=== PATIENT | male | born 1965 | race Caucasian/White ===

== ENCOUNTER → 2017-05-31 | Outpatient (CLI) | payer BC ==
[~2017-05-31] MED LIST: GASTROGRAFIN SOLUTION 30ML (Q9963) As Ordered ONE; ISOVUE-370 76% 100ML VIAL (Q9967) As Ordered ONE
--- NOTE | 2017-05-31 19:29 | REP ---
CT ABDOMEN AND PELVIS WITH AND WITHOUT CONTRAST: TECHNIQUE: Axial noncontrast images through the abdomen followed by contrast-enhanced images through the abdomen and pelvis using 100 mL Isovue 370 intravenous contrast material, with coronal and sagittal reformations. Visualized lung bases are clear. Precontrast images show no gallstones. No intrarenal calculi are seen, but there is a 3 mm calculus within the distal right ureter causing mild right hydroureteronephrosis. No bladder calculus is seen. Postcontrast images demonstrate focal fatty infiltration of the liver anteriorly along the fissure for the ligamentum teres. The liver and spleen are normal in size with no other intrinsic abnormality. The adrenals, pancreas and left kidney appear normal. There are mild atherosclerotic calcifications of the distal abdominal aorta without aneurysm. There is no adenopathy. There is no free air or free fluid. No bowel wall thickening is seen. No pelvic mass is seen. There are mild degenerative changes of the spine. IMPRESSION: There is a 3 mm calculus in the distal right ureter causing mild right hydroureteronephrosis. No other significant abnormalities is seen in the abdomen or pelvis. Signed by Petey Dai MD 06/01/2017 05:20 P
[2017-05-31 20:21] LABS: BASO % 0.3 % (0.0-1.0); EOS % 0.7 % (0.0-3.0); LARGE UNSTAINED CELL # 0.1 K/mm3 (0.0-0.4); LARGE UNSTAINED CELL % 1.3 % (0.0-4.0); LYMPH % 25.2 % (24.0-44.0); MEAN CORPUSCULAR HEMOGLOBIN 31.9 pg (27.0-33.0); MEAN CORPUSCULAR HGB CONC 33.9 g/dl (32.0-36.5); MONO # 0.4 K/mm3 (0.0-0.8); MONO % 5.1 % (0.0-5.0); NEUTROPHILS # 5.2 K/mm3 (1.8-7.7); NEUTROPHILS % 67.4 % (36.0-66.0); PLATELET COUNT, AUTOMATED 256 k/mm3 (150-450); RED CELL DISTRIBUTION WIDTH 12.7 % (11.5-14.5); WHITE BLOOD COUNT 7.6 K/mm3 (4.0-10.0)
[2017-05-31 20:39] LABS: ALBUMIN 4.3 GM/DL (3.2-5.2); ALKALINE PHOSPHATASE 93 U/L (45-117); ALT/SGPT 31 U/L (12-78); ANION GAP 8 MEQ/L (8-16); AST/SGOT 16 U/L (15-37); BILIRUBIN,TOTAL 0.7 MG/DL (0.2-1.0); BLOOD UREA NITROGEN 10 MG/DL (7-18); CARBON DIOXIDE LEVEL 26 MEQ/L (21-32); CHLORIDE LEVEL 107 MEQ/L (98-107); FREE T4 0.78 NG/DL (0.76-1.46); GLOMERULAR FILTRATION RATE > 60.0 (>56); GLUCOSE, FASTING 82 MG/DL (70-105); POTASSIUM SERUM 3.8 MEQ/L (3.5-5.1); SODIUM LEVEL 141 MEQ/L (136-145); TOTAL PROTEIN 7.6 GM/DL (6.4-8.2)
== END ==
LOC: M RAD 15:55
PROVIDERS: ATTEND Otolaryngology
DX: R63.4 Abnormal weight loss (principal); R10.84 Generalized abdominal pain; N13.1 Hydronephrosis with ureteral stricture, not elsewhere classified
CPT/HCPCS: 74178; 80053; 84439; 84443; 85025; G0103; Q9963; Q9967

== ENCOUNTER → 2017-11-07 | Outpatient (CLI) | payer BC ==
--- NOTE | 2017-11-07 14:37 | REP ---
Clinical: Follow up nephroureterolithiasis. Comparison: 05/31/2017. Findings: Evaluation of the urinary tract system is essentially unremarkable. There is no evidence for perinephric stranding, hydroureteronephrosis, intrarenal or obstructing ureteral calculi. The previously noted distal right ureteral calculus has resolved. Bilateral ureters and bladder are normal in appearance. Liver, spleen, pancreas, gallbladder, and bilateral adrenal glands are normal for noncontrast evaluation. The enteric system is without obstruction or acute inflammatory process. A normal terminal ileum and appendix are identified in the right lower quadrant. Pelvis demonstrates normal bladder and age appropriate prostate/seminal vesicles. No pelvic fluid or ascites. Mild atherosclerotic changes to the aorta and iliac arteries noted without aneurysm. No intraperitoneal or retroperitoneal adenopathy. No free air. No obvious mass lesion. Musculoskeletal structures are intact without focal osseous abnormality. Benign solitary cyst identified in the L3 vertebral body remains stable. Mild bilateral sacroiliitis is suggested. Impression: 1. Normal appearance to the urinary tract system. Previously noted 3 mm obstructing distal right ureteral calculus has resolved. 2. No significant abdominopelvic pathology appreciated. 3. 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 Signed by Tushar Chairez MD 11/07/2017 04:53 A
== END ==
LOC: M RAD 07:26
PROVIDERS: ATTEND Otolaryngology
DX: N20.1 Calculus of ureter (principal); M51.36 Other intervertebral disc degeneration, lumbar region; M51.37 Other intervertebral disc degeneration, lumbosacral region

== ENCOUNTER → 2020-09-17 | Outpatient (REF) | payer BC ==
[2020-09-17 18:05] LABS: BASO % 0.2 % (0.0-1.0); EOS # 0.1 10^3/uL (0.0-0.5); EOS % 0.8 % (0.0-3.0); HEMATOCRIT 43.8 % (42.0-52.0); HEMOGLOBIN 14.6 g/dl (13.5-17.5); LYMPH # 2.2 10^3/uL (1.5-5.0); LYMPH % 25.2 % (24.0-44.0); MEAN CORPUSCULAR HEMOGLOBIN 31.3 pg (27.0-33.0); MEAN CORPUSCULAR HGB CONC 33.3 g/dl (32.0-36.5); MEAN CORPUSCULAR VOLUME 93.8 fl (80.0-96.0); MONO # 0.8 10^3/uL (0.0-0.8); MONO % 9.1 % (0.0-5.0); NEUTROPHILS # 5.6 10^3/uL (1.5-8.5); NEUTROPHILS % 64.4 % (36.0-66.0); PLATELET COUNT, AUTOMATED 269 10^3/uL (150-450); RED BLOOD COUNT 4.67 10^6/uL (4.30-6.10); WHITE BLOOD COUNT 8.7 10^3/uL (4.0-10.0)
[2020-09-17 18:17] LABS: ALBUMIN 4.1 GM/DL (3.2-5.2); ALT/SGPT 42 U/L (12-78); BILIRUBIN,TOTAL 0.5 MG/DL (0.2-1.0); BLOOD UREA NITROGEN 11 MG/DL (7-18); CARBON DIOXIDE LEVEL 29 MEQ/L (21-32); CHLORIDE LEVEL 105 MEQ/L (98-107); CREATININE FOR GFR 1.16 MG/DL (0.70-1.30); GLOMERULAR FILTRATION RATE > 60.0 (>56); GLUCOSE, FASTING 78 MG/DL (70-100); POTASSIUM SERUM 4.1 MEQ/L (3.5-5.1); SODIUM LEVEL 140 MEQ/L (136-145); TOTAL PROTEIN 7.3 GM/DL (6.4-8.2); URIC ACID 7.1 MG/DL (3.5-7.2)
[2020-09-17 18:25] LABS: TOTAL 25(OH) VITAMIN D 29.4 NG/ML (30.0-100.0)
[2020-09-17 18:26] LABS: PTH INTACT 46.9 PG/ML (18.5-88.0); VITAMIN B12 LEVEL 307 PG/ML (247-911)
[2020-09-21 14:10] LABS: ALBUMIN 4.31 GM/DL (3.29-5.55); ALPHA-1-GLOBULIN % 4.3 % (2.9-4.9); ALPHA-1-GLOBULINS 0.31 GM/DL (0.17-0.41); ALPHA-2-GLOBULINS % 10.9 % (7.1-11.8); BETA-1-GLOBULINS % 6.8 % (4.7-7.2); BETA-2-GLOBULINS 0.47 GM/DL (0.19-0.55); BETA-2-GLOBULINS % 6.4 % (3.2-6.5); GAMMA GLOBULIN % 12.6 % (11.1-18.8); GAMMA GLOBULINS 0.92 GM/DL (0.65-1.58)
== END ==
LOC: M SFHCPLAZ 15:34
PROVIDERS: ATTEND Family Medicine
DX: M10.9 Gout, unspecified (principal); D75.89 Other specified diseases of blood and blood-forming organs; N20.0 Calculus of kidney; E78.2 Mixed hyperlipidemia; Z12.5 Encounter for screening for malignant neoplasm of prostate
CPT/HCPCS: 36415; 80053; 82306; 82365; 82607; 83970; 84165; 84550; 85025; 86200; G0103

== ENCOUNTER → 2022-09-04 | Outpatient (CLI) | payer BC | LOC: M RAD 14:52 | PROVIDERS: ATTEND Family Medicine | DX: N20.0 Calculus of kidney (principal) ==

== ENCOUNTER → 2022-09-04 | Outpatient (CLI) | payer BC ==
[2022-09-04 15:41] LABS: BASO % 0.2 % (0.0-1.0); EOS % 0.2 % (0.0-3.0); HEMATOCRIT 44.5 % (42.0-52.0); LYMPH # 2.1 10^3/uL (1.5-5.0); LYMPH % 16.5 % (24.0-44.0); MEAN CORPUSCULAR HEMOGLOBIN 31.3 pg (27.0-33.0); MEAN CORPUSCULAR HGB CONC 33.7 g/dl (32.0-36.5); MEAN CORPUSCULAR VOLUME 92.7 fl (80.0-96.0); MONO # 0.9 10^3/uL (0.0-0.8); MONO % 7.1 % (2.0-8.0); NEUTROPHILS # 9.4 10^3/uL (1.5-8.5); NEUTROPHILS % 75.7 % (36.0-66.0); PLATELET COUNT, AUTOMATED 268 10^3/uL (150-450); WHITE BLOOD COUNT 12.5 10^3/uL (4.0-10.0)
[2022-09-04 15:42] LABS: HEMATOCRIT 44.5 % (42.0-52.0)
[2022-09-04 16:19] LABS: APPEARANCE, URINE MANUAL HAZY (CLEAR); COLOR, URINE MANUAL YELLOW (YELLOW)
[2022-09-04 16:20] LABS: BILIRUBIN, URINE MANUAL NEGATIVE (NEGATIVE); BLOOD URINE MANUAL POSITIVE (NEGATIVE); GLUCOSE, URINE (UA) MANUAL NEGATIVE (NEGATIVE); KETONE, URINE MANUAL NEGATIVE (NEGATIVE); LEUKOCYTE ESTERASE, URINE MAN POSITIVE (NEGATIVE); NITRITE, URINE MANUAL NEGATIVE (NEGATIVE); PH,URINE MAN 6.7 UNITS (5.0 - 7.0); PROTEIN, URINE MANUAL 1+ mg/dL (NEGATIVE); SPECIFIC GRAVITY,URINE MANUAL 1.015 (1.002-1.035); UROBILINOGEN, URINE MANUAL NORMAL (NORMAL)
[2022-09-04 16:22] LABS: ALBUMIN 4.2 GM/DL (3.2-5.2); ALT/SGPT 31 U/L (12-78); BILIRUBIN,TOTAL 0.6 MG/DL (0.2-1.0); BLOOD UREA NITROGEN 13 MG/DL (7-18); CALCIUM LEVEL 9.6 MG/DL (8.5-10.1); CARBON DIOXIDE LEVEL 28 MEQ/L (21-32); CHLORIDE LEVEL 102 MEQ/L (98-107); CHOLESTEROL LEVEL 157 MG/DL (<200); CHOLESTEROL RISK RATIO 3.488 (<5); CREATININE FOR GFR 1.13 MG/DL (0.70-1.30); GLOMERULAR FILTRATION RATE > 60.0 (>56); GLUCOSE, FASTING 94 MG/DL (70-100); HDL CHOLESTEROL 45 MG/DL (>40); LDL CHOLESTEROL 60 MG/DL (<100); NON-HDL-C 112 MG/DL; NT-PRO BNP 48 PG/ML (<125); POTASSIUM SERUM 4.9 MEQ/L (3.5-5.1); SODIUM LEVEL 137 MEQ/L (136-145); TOTAL PROTEIN 7.8 GM/DL (6.4-8.2); TRIGLYCERIDES LEVEL 262 MG/DL (<150)
[2022-09-04 17:17] LABS: VITAMIN B12 LEVEL 237 PG/ML (247-911)
[2022-09-04 17:49] LABS: BACTERIA, URINE LARGE AMOUNT; HYALINE CAST, URINE NONE SEEN /lpf (0-1); RBC, URINE 20-30 /hpf (0-3); SQUAMOUS EPITHELIAL CELL URINE SMALL AMOUNT /hpf (SMALL AMT); WBC, URINE 40-50 /hpf (0-3)
== END ==
LOC: M PLALAB 13:40
PROVIDERS: ATTEND Family Medicine
DX: E53.8 Deficiency of other specified B group vitamins (principal); N20.0 Calculus of kidney; E78.2 Mixed hyperlipidemia; I10 Essential (primary) hypertension

== ENCOUNTER → 2022-09-27 | Outpatient (CLI) | payer BC | LOC: M RAD 15:11 | PROVIDERS: ATTEND Family Medicine | DX: N20.0 Calculus of kidney (principal) ==

== ENCOUNTER → 2024-05-16 | Outpatient (CLI) | payer BC ==
[2024-05-16 13:39] LABS: BASO % 0.6 % (0.0-1.0); EOS # 0.1 10^3/uL (0.0-0.5); EOS % 1.5 % (0.0-3.0); HEMATOCRIT 46.6 % (42.0-52.0); HEMOGLOBIN 16.2 g/dl (13.5-17.5); LYMPH # 1.9 10^3/uL (1.5-5.0); LYMPH % 27.2 % (24.0-44.0); MEAN CORPUSCULAR HEMOGLOBIN 31.6 pg (27.0-33.0); MEAN CORPUSCULAR HGB CONC 34.8 g/dl (32.0-36.5); MEAN CORPUSCULAR VOLUME 90.8 fl (80.0-96.0); MONO # 0.5 10^3/uL (0.0-0.8); MONO % 7.5 % (2.0-8.0); NEUTROPHILS # 4.3 10^3/uL (1.5-8.5); NEUTROPHILS % 63.1 % (36.0-66.0); PLATELET COUNT, AUTOMATED 274 10^3/uL (150-450); RED BLOOD COUNT 5.13 10^6/uL (4.30-6.10); WHITE BLOOD COUNT 6.8 10^3/uL (4.0-10.0)
[2024-05-16 13:41] LABS: HEMATOCRIT 47.3 % (42.0-52.0)
[2024-05-16 13:43] LABS: ERYTHROCYTE SEDIMENTATION RATE 10 mm/hr (0-20)
[2024-05-16 13:45] LABS: C REACTIVE PROTEIN QUANTITATIV < 0.40 MG/DL (<1.0)
[2024-05-16 13:47] LABS: ALBUMIN 4.5 G/DL (3.2-5.2); ALKALINE PHOSPHATASE 85 U/L (46-116); ALT/SGPT 106 U/L (7.0-40); AST/SGOT 44 U/L (<34); BILIRUBIN,TOTAL 0.4 MG/DL (0.3-1.2); BLOOD UREA NITROGEN 12 MG/DL (9-23); CALCIUM LEVEL 9.7 MG/DL (8.5-10.1); CARBON DIOXIDE LEVEL 24 MMOL/L (20-31); CHLORIDE LEVEL 106 MMOL/L (98-107); CHOLESTEROL LEVEL 183 MG/DL (<200); CHOLESTEROL RISK RATIO 4.85 (<5); CREATININE FOR GFR 1.11 MG/DL (0.70-1.30); FERRITIN 59.9 NG/ML (10.5-307.3); GLOMERULAR FILTRATION RATE > 60.0 (>56); GLUCOSE, FASTING 122 MG/DL (60-100); HDL CHOLESTEROL 37.7 MG/DL (>40); LDL CHOLESTEROL 108.7 MG/DL (<100); NON-HDL-C 145.3 MG/DL; POTASSIUM SERUM 4.5 MMOL/L (3.5-5.1); PSA SCREENING 0.84 NG/ML (< 4.00); PTH INTACT 31.1 PG/ML (18.5-88.0); RHEUMATOID FACTOR QUANT < 3.5 IU/ML (<14); SODIUM LEVEL 138 MMOL/L (136-145); THYROID STIMULATING HORMONE 1.186 uIU/ML (0.55-4.78); TOTAL 25(OH) VITAMIN D 22.5 NG/ML (20.0-100.0); TOTAL PROTEIN 7.6 G/DL (5.7-8.2); TRIGLYCERIDES LEVEL 183 MG/DL (<150)
[2024-05-16 13:48] LABS: FREE T4 0.86 NG/DL (0.89-1.76)
[2024-05-16 13:49] LABS: VITAMIN B12 LEVEL 534 PG/ML (211-911)
[2024-05-16 14:06] LABS: HEPATITIS B SURFACE ANTIGEN NEGATIVE (NEGATIVE)
[2024-05-16 14:27] LABS: HEPATITIS C VIRUS ABY INDEX < 0.02 INDEX (<0.8)
[2024-05-16 14:37] LABS: HEMOGLOBIN A1c 5.9 % (4.0-6.0)
[2024-05-16 14:43] LABS: URIC ACID 8.6 MG/DL (3.7-9.2)
[2024-05-18 02:13] LABS: PROTEIN, TOTAL SO 7.4 g/dL (6.1-8.1)
[2024-05-19 13:57] LABS: ANA SCREEN, IFA NEGATIVE (NEGATIVE)
[2024-05-19 16:09] LABS: Creatinine(Crt),U 2.97 g/L (0.30-3.00)
[2024-05-19 16:58] LABS: LYME TOTAL ANTIBODY CIA <= 0.90 Index (<=0.90)
== END ==
LOC: M PLALAB 08:58
PROVIDERS: ATTEND Family Medicine
DX: N20.0 Calculus of kidney (principal)
CPT/HCPCS: 36415; 80053; 80061; 82175; 82306; 82570; 82607; 82728; 82747; 83036; 83655; 83825; 83921; 83970; 84155; 84165; 84207; 84425; 84439; 84443; 84446; 84550; 85025; 85652; 86038; 86140; 86335; 86431; 86618; 86803; 87340; G0103

== ENCOUNTER → 2024-05-30 | Outpatient (CLI) | payer BC ==
[2024-05-30 14:11] LABS: ALBUMIN 4.3 G/DL (3.2-5.2); ALKALINE PHOSPHATASE 80 U/L (46-116); ALT/SGPT 138 U/L (7.0-40); AST/SGOT 67 U/L (<34); BILIRUBIN,TOTAL 0.8 MG/DL (0.3-1.2); BLOOD UREA NITROGEN 9 MG/DL (9-23); CALCIUM LEVEL 10.1 MG/DL (8.5-10.1); CARBON DIOXIDE LEVEL 27 MMOL/L (20-31); CHLORIDE LEVEL 107 MMOL/L (98-107); CHOLESTEROL LEVEL 181 MG/DL (<200); CHOLESTEROL RISK RATIO 4.93 (<5); CREATININE FOR GFR 1.16 MG/DL (0.70-1.30); GLOMERULAR FILTRATION RATE > 60.0 (>56); GLUCOSE, FASTING 114 MG/DL (60-100); HDL CHOLESTEROL 36.7 MG/DL (>40); IMMUNOGLOBULIN A 193.1 MG/DL (40-350); LDL CHOLESTEROL 125.5 MG/DL (<100); NON-HDL-C 144.3 MG/DL; POTASSIUM SERUM 4.8 MMOL/L (3.5-5.1); SODIUM LEVEL 141 MMOL/L (136-145); TOTAL PROTEIN 7.3 G/DL (5.7-8.2); TRIGLYCERIDES LEVEL 94 MG/DL (<150)
[2024-05-30 14:12] LABS: IMMUNOGLOBULIN G 1046 MG/DL (650-1600)
[2024-05-30 14:37] LABS: HIV 1&2 SCREEN NEGATIVE (NEGATIVE)
[2024-05-30 14:54] LABS: CREATININE, URINE 204.5 MG/DL
[2024-06-02 09:37] LABS: INSULIN LEVEL 10.9 uIU/mL (<=18.4)
[2024-06-02 12:11] LABS: FREE LAMBDA LIGHT CHAINS SERUM 12.5 mg/L (5.7-26.3); KAPPA/LAMBDA RATIO SERUM 1.76 (0.26-1.65)
[2024-06-02 15:46] LABS: FREE KAPPA LIGHT CHAINS URINE 20.83 mg/L (<=32.90); FREE LAMBDA LIGHT CHAINS URINE 3.28 mg/L (<=3.79); KAPPA/LAMBDA RATIO URINE 6.35 (<=8.69)
[2024-06-03 00:08] LABS: COPPER, RBC 0.66 ug/mL (0.50-1.00)
== END ==
LOC: M PLAIMG 09:23
PROVIDERS: ATTEND Family Medicine
DX: D47.2 Monoclonal gammopathy (principal); G62.9 Polyneuropathy, unspecified; K75.81 Nonalcoholic steatohepatitis (NASH); R73.01 Impaired fasting glucose

== ENCOUNTER → 2024-05-30 | Outpatient (CLI) | payer BC ==
[~2024-05-30] MED LIST changes: -GASTROGRAFIN SOLUTION 30ML (Q9963) As Ordered ONE; -ISOVUE-370 76% 100ML VIAL (Q9967) As Ordered ONE; +PROHANCE 279.3MG/ML 15ML VIAL ONE; +PROHANCE 279.3MG/ML 5ML VIAL ONE
== END ==
LOC: M PLAIMG 11:16
PROVIDERS: ATTEND Family Medicine
DX: G62.9 Polyneuropathy, unspecified (principal); R27.0 Ataxia, unspecified
CPT/HCPCS: 70553; 82784; A9576

== ENCOUNTER → 2024-06-12 | Outpatient (CLI) | payer BC | LOC: M PLAIMG 14:31 | PROVIDERS: ATTEND Family Medicine | DX: R53.83 Other fatigue (principal) ==

== ENCOUNTER → 2024-06-16 | Outpatient (REF) | payer BC | LOC: M LABDRAWP 17:04 | PROVIDERS: ATTEND Family Medicine | DX: G62.9 Polyneuropathy, unspecified (principal) ==

== ENCOUNTER → 2024-07-08 | Outpatient (CLI) | payer BC | LOC: M SLEEP HO 14:22 | PROVIDERS: ATTEND Family Medicine | DX: R06.83 Snoring (principal) ==

== ENCOUNTER → 2024-07-10 | Outpatient (CLI) | payer BC | LOC: M RAD 08:32 | PROVIDERS: ATTEND Family Medicine | DX: I27.20 Pulmonary hypertension, unspecified (principal) ==

== ENCOUNTER → 2024-07-18 | Outpatient (CLI) | payer BC ==
[2024-07-18 18:07] LABS: BASO % 0.3 % (0.0-1.0); EOS % 0.4 % (0.0-3.0); HEMATOCRIT 47.4 % (42.0-52.0); LYMPH # 2.2 10^3/uL (1.5-5.0); LYMPH % 27.9 % (24.0-44.0); MEAN CORPUSCULAR HEMOGLOBIN 30.8 pg (27.0-33.0); MEAN CORPUSCULAR HGB CONC 33.8 g/dl (32.0-36.5); MEAN CORPUSCULAR VOLUME 91.2 fl (80.0-96.0); MONO # 0.5 10^3/uL (0.0-0.8); MONO % 6.1 % (2.0-8.0); NEUTROPHILS # 5.1 10^3/uL (1.5-8.5); PLATELET COUNT, AUTOMATED 264 10^3/uL (150-450); WHITE BLOOD COUNT 7.9 10^3/uL (4.0-10.0)
[2024-07-18 18:36] LABS: C REACTIVE PROTEIN QUANTITATIV < 0.40 MG/DL (<1.0)
[2024-07-18 18:37] LABS: CPK CREATINE PHOSPHOKINASE 250 U/L (46-171)
[2024-07-18 18:38] LABS: ALBUMIN 4.7 G/DL (3.2-5.2); ALKALINE PHOSPHATASE 83 U/L (46-116); ALT/SGPT 103 U/L (7.0-40); AST/SGOT 54 U/L (<34); BLOOD UREA NITROGEN 14 MG/DL (9-23); CALCIUM LEVEL 9.4 MG/DL (8.5-10.1); CARBON DIOXIDE LEVEL 26 MMOL/L (20-31); CHLORIDE LEVEL 106 MMOL/L (98-107); CREATININE FOR GFR 1.15 MG/DL (0.70-1.30); GLOMERULAR FILTRATION RATE > 60.0 (>56); GLUCOSE, FASTING 113 MG/DL (60-100); SODIUM LEVEL 137 MMOL/L (136-145); TOTAL PROTEIN 7.8 G/DL (5.7-8.2)
[2024-07-18 18:41] LABS: FREE T4 1.02 NG/DL (0.89-1.76)
[2024-07-18 18:42] LABS: THYROID STIMULATING HORMONE 1.184 uIU/ML (0.55-4.78)
[2024-07-20 05:35] LABS: PROTEIN, TOTAL SO 7.7 g/dL (6.1-8.1)
[2024-07-22 13:22] LABS: FREE KAPPA LIGHT CHAINS SERUM 19.5 mg/L (3.3-19.4); FREE LAMBDA LIGHT CHAINS SERUM 12.4 mg/L (5.7-26.3); KAPPA/LAMBDA RATIO SERUM 1.57 (0.26-1.65)
[2024-07-23 04:58] LABS: FREE KAPPA LIGHT CHAINS URINE 34.91 mg/L (<=32.90); FREE LAMBDA LIGHT CHAINS URINE 3.87 mg/L (<=3.79); KAPPA/LAMBDA RATIO URINE 9.02 (<=8.69)
[2024-07-23 06:52] LABS: ALBUMIN SO 4.9 g/dL (3.8-4.8); ALPHA 1 GLOBULINS SO 0.2 g/dL (0.2-0.3); ALPHA 2 GLOBULINS SO 0.7 g/dL (0.5-0.9); BETA 2 GLOBULIN SO 0.5 g/dL (0.2-0.5); BETA GLOBULIN SO 0.5 g/dL (0.4-0.6); GAMMA GLOBULINS SO 0.9 g/dL (0.8-1.7)
[2024-07-28 00:47] LABS: APOLIPOPROTEIN A1 114 mg/dL (>=115); APOLIPOPROTEIN B 98 mg/dL (<90); APOLIPOPROTEIN B/A-1 RATIO 0.86 (<0.77)
== END ==
LOC: M PLALAB 16:21
PROVIDERS: ATTEND Family Medicine
DX: G62.9 Polyneuropathy, unspecified (principal); D47.2 Monoclonal gammopathy; E78.2 Mixed hyperlipidemia

== ENCOUNTER 2024-07-22 07:54 | Outpatient (CLI) | payer BC ==
[~2024-07-22] VITALS: Ht 185.4 cm; Wt 111.1 kg
[~2024-07-22 07:54] MED LIST changes: +ALBUTEROL SULFATE 2.5MG/0.5ML INH NEB SOLN INH PRN; +EPINEPHrine INJ 1 MG/ML 1ML AMP IM PRN; +NS 1,000 ML IV SCH; -PROHANCE 279.3MG/ML 15ML VIAL ONE; -PROHANCE 279.3MG/ML 5ML VIAL ONE; +diphenhydrAMINE 50MG/ML VIAL IV PRN; +methylPREDNISolone 125MG 2ML VIAL IV PRN
[2024-07-22 08:10] VITALS: BP 156/96; O2SAT 99
[2024-07-22] MEDS: diphenhydrAMINE 25MG PO PRIOR TO INFUSION PO ONE (08:11)
[2024-07-22] MEDS: methylPREDNISolone 125MG 2ML VIAL IV ONE (08:11)
[2024-07-22] MEDS: ACETAMINOPHEN 650MG PO PRIOR TO INFUSION PO ONE (08:11)
[2024-07-22] MEDS: IMMUNE GLOBULIN 10% 40 GM in IV 1 EA IV ONE (08:46)
[2024-07-22] MEDS: IMMUNE GLOBULIN 10% 5 GM in IV 1 EA IV ONE (08:47)
[2024-07-22 09:15] VITALS: BP 134/81; O2SAT 100
[2024-07-22 09:45] VITALS: BP 155/88; O2SAT 100
[2024-07-22 10:15] VITALS: BP 165/94; O2SAT 100
[2024-07-22 11:15] VITALS: BP 146/96; O2SAT 100
[2024-07-22 11:35] VITALS: BP 150/90; O2SAT 100
== END 2024-07-22 11:45 ==
LOC: M INFU 07:54
PROVIDERS: ATTEND Nurse Practitioner Family
DX: G61.81 Chronic inflammatory demyelinating polyneuritis (principal)
CPT/HCPCS: 96365; 96366; 96367; J1459; J2919

== ENCOUNTER 2024-07-24 08:00 | Outpatient (CLI) | payer BC ==
[~2024-07-24] VITALS: Ht 185.4 cm; Wt 111.0 kg
[2024-07-24 08:00] VITALS: BP 169/97; O2SAT 99
[2024-07-24] MEDS: ACETAMINOPHEN 650MG PO PRIOR TO INFUSION PO ONE (08:13)
[2024-07-24] MEDS: methylPREDNISolone 125MG 2ML VIAL IV ONE (08:13)
[2024-07-24] MEDS: diphenhydrAMINE 25MG PO PRIOR TO INFUSION PO ONE (08:13)
[2024-07-24] MEDS: IMMUNE GLOBULIN 10% 40 GM in IV 1 EA IV ONE (08:33)
[2024-07-24] MEDS: IMMUNE GLOBULIN 10% 5 GM in IV 1 EA IV ONE (08:36)
[2024-07-24 09:00] VITALS: BP 147/91; O2SAT 98
[2024-07-24 09:30] VITALS: BP 137/90; O2SAT 98
[2024-07-24 10:00] VITALS: BP 164/100; O2SAT 97
[2024-07-24 11:20] VITALS: BP 142/96; O2SAT 100
== END 2024-07-24 11:35 ==
LOC: M INFU 08:00
PROVIDERS: ATTEND Nurse Practitioner Family
DX: G61.81 Chronic inflammatory demyelinating polyneuritis (principal)
CPT/HCPCS: 96365; 96366; 96367; J1459; J2919

== ENCOUNTER 2024-07-28 08:00 | Outpatient (CLI) | payer BC ==
[~2024-07-28] VITALS: Ht 185.4 cm; Wt 110.4 kg
[2024-07-28 08:00] VITALS: BP 134/95; O2SAT 89
[~2024-07-28 08:00] MED LIST changes: +ACETAMINOPHEN 650MG PO PRIOR TO INFUSION PO ONE; +diphenhydrAMINE 25MG PO PRIOR TO INFUSION PO ONE; +methylPREDNISolone 125MG 2ML VIAL IV ONE
[2024-07-28] MEDS: IMMUNE GLOBULIN 10% 40 GM in IV 1 EA IV ONE (08:36)
[2024-07-28] MEDS: IMMUNE GLOBULIN 10% 5 GM in IV 1 EA IV ONE (08:38)
[2024-07-28 09:00] VITALS: BP 140/95; O2SAT 100
[2024-07-28 09:30] VITALS: BP 147/90; O2SAT 100
[2024-07-28 10:00] VITALS: BP 159/92; O2SAT 100
[2024-07-28 11:30] VITALS: BP 150/95; O2SAT 100
== END 2024-07-28 11:30 ==
LOC: M INFU 08:00
PROVIDERS: ATTEND Nurse Practitioner Family
DX: G61.81 Chronic inflammatory demyelinating polyneuritis (principal)
CPT/HCPCS: 96365; 96366; J1459

== ENCOUNTER 2024-07-30 08:10 | Outpatient (CLI) | payer BC ==
[~2024-07-30] VITALS: Ht 185.4 cm; Wt 109.5 kg
[2024-07-30 08:10] VITALS: BP 150/90; O2SAT 100
[~2024-07-30 08:10] MED LIST changes: -ACETAMINOPHEN 650MG PO PRIOR TO INFUSION PO ONE; -diphenhydrAMINE 25MG PO PRIOR TO INFUSION PO ONE; -methylPREDNISolone 125MG 2ML VIAL IV ONE
[2024-07-30] MEDS ORDERED: ACETAMINOPHEN 650MG PO PRIOR TO INFUSION PO ONE (08:30)
[2024-07-30] MEDS ORDERED: methylPREDNISolone 125MG 2ML VIAL IV ONE (08:30)
[2024-07-30] MEDS ORDERED: diphenhydrAMINE 25MG PO PRIOR TO INFUSION PO ONE (08:30)
[2024-07-30] MEDS: IMMUNE GLOBULIN 10% 5 GM in IV 1 EA IV ONE (08:51)
[2024-07-30] MEDS: IMMUNE GLOBULIN 10% 40 GM in IV 1 EA IV ONE (08:54)
[2024-07-30 09:30] VITALS: BP 148/93; O2SAT 100
[2024-07-30 10:00] VITALS: BP 156/93; O2SAT 100
== END 2024-07-30 11:40 ==
LOC: M INFU 08:10
PROVIDERS: ATTEND Nurse Practitioner Family
DX: G61.81 Chronic inflammatory demyelinating polyneuritis (principal)
CPT/HCPCS: 96365; 96366; J1459

== ENCOUNTER 2024-08-01 08:05 | Outpatient (CLI) | payer BC ==
[~2024-08-01] VITALS: Ht 185.4 cm; Wt 109.5 kg
[2024-08-01 08:05] VITALS: BP 137/96; O2SAT 100
[~2024-08-01 08:05] MED LIST changes: +ACETAMINOPHEN 650MG PO PRIOR TO INFUSION PO ONE; +diphenhydrAMINE 25MG PO PRIOR TO INFUSION PO ONE; +methylPREDNISolone 125MG 2ML VIAL IV ONE
[2024-08-01] MEDS: IMMUNE GLOBULIN 10% 5 GM in IV 1 EA IV ONE (08:26)
[2024-08-01] MEDS: IMMUNE GLOBULIN 10% 40 GM in IV 1 EA IV ONE (08:27)
[2024-08-01 08:52] VITALS: BP 142/97; O2SAT 98
[2024-08-01 10:29] VITALS: BP 170/97; O2SAT 99
[2024-08-01 11:04] VITALS: BP 145/90; O2SAT 99
== END 2024-08-01 11:10 ==
LOC: M INFU 08:05
PROVIDERS: ATTEND Nurse Practitioner Family
DX: G61.81 Chronic inflammatory demyelinating polyneuritis (principal)
CPT/HCPCS: 96365; 96366; J1459

== ENCOUNTER → 2024-08-01 | Outpatient (REF) | payer BC | LOC: M SFHCPLAZ 10:33 | PROVIDERS: ATTEND Family Medicine | DX: G62.9 Polyneuropathy, unspecified (principal); D47.2 Monoclonal gammopathy; E78.2 Mixed hyperlipidemia; Z53.9 Procedure and treatment not carried out, unspecified reason ==

== ENCOUNTER → 2024-08-06 | Outpatient (REF) | LOC: M EMP 09:22 | PROVIDERS: ATTEND Family Medicine | DX: Z11.52 Encounter for screening for COVID-19 (principal) ==

== ENCOUNTER 2024-08-28 13:27 | Outpatient (CLI) | payer BC ==
[~2024-08-28] VITALS: Ht 185.4 cm; Wt 111.0 kg
[~2024-08-28 13:27] MED LIST changes: -ACETAMINOPHEN 650MG PO PRIOR TO INFUSION PO ONE; -NS 1,000 ML IV SCH; -diphenhydrAMINE 25MG PO PRIOR TO INFUSION PO ONE; -methylPREDNISolone 125MG 2ML VIAL IV ONE
[2024-08-28] MEDS: IMMUNE GLOBULIN 10% 40 GM in IV 1 EA IV ONE (13:37)
[2024-08-28] MEDS: IMMUNE GLOBULIN 10% 10 GM in IV 1 EA IV ONE (13:38)
[2024-08-28 14:15] VITALS: BP 158/99; O2SAT 100
[2024-08-28] MEDS: ACETAMINOPHEN 650MG PO PRIOR TO INFUSION PO ONE (14:30)
[2024-08-28] MEDS: diphenhydrAMINE 25MG PO PRIOR TO INFUSION PO ONE (14:30)
[2024-08-28 14:45] VITALS: BP 152/100; O2SAT 100
[2024-08-28] MEDS: methylPREDNISolone 125MG 2ML VIAL IV ONE (16:18)
[2024-08-28 16:50] VITALS: BP 154/102
== END 2024-08-28 16:50 ==
LOC: M INFU 13:27
PROVIDERS: ATTEND Nurse Practitioner Family
DX: G61.81 Chronic inflammatory demyelinating polyneuritis (principal)
CPT/HCPCS: 96365; 96366; 96367; J1459; J2919

== ENCOUNTER 2024-08-29 07:15 | Outpatient (CLI) | payer BC ==
[~2024-08-29] VITALS: Ht 185.4 cm; Wt 111.0 kg
[~2024-08-29 07:15] MED LIST changes: +ACETAMINOPHEN 650MG PO PRIOR TO INFUSION PO ONE; +diphenhydrAMINE 25MG PO PRIOR TO INFUSION PO ONE
[2024-08-29] MEDS: methylPREDNISolone 125MG 2ML VIAL IV ONE (07:33)
[2024-08-29] MEDS: IMMUNE GLOBULIN 10% 10 GM in IV 1 EA IV ONE (07:34)
[2024-08-29] MEDS: IMMUNE GLOBULIN 10% 40 GM in IV 1 EA IV ONE (07:36)
[2024-08-29 08:15] VITALS: BP 141/87; O2SAT 96
[2024-08-29 08:45] VITALS: BP 145/88; O2SAT 98
[2024-08-29 09:15] VITALS: BP 168/95; O2SAT 98
[2024-08-29 10:19] VITALS: BP 167/99; O2SAT 98
== END 2024-08-29 10:50 ==
LOC: M INFU 07:15
PROVIDERS: ATTEND Nurse Practitioner Family
DX: G61.81 Chronic inflammatory demyelinating polyneuritis (principal)
CPT/HCPCS: 96365; 96366; 96367; J1459; J2919

== ENCOUNTER 2024-09-11 14:00 | Outpatient (CLI) | payer BC ==
[~2024-09-11] VITALS: Ht 185.4 cm; Wt 111.0 kg
[~2024-09-11 14:00] MED LIST changes: -ACETAMINOPHEN 650MG PO PRIOR TO INFUSION PO ONE; +NS 1,000 ML IV SCH; -diphenhydrAMINE 25MG PO PRIOR TO INFUSION PO ONE
[2024-09-11] MEDS: methylPREDNISolone 125MG 2ML VIAL IV ONE (14:09)
[2024-09-11] MEDS: IMMUNE GLOBULIN 10% 40 GM in IV 1 EA IV ONE (14:11)
[2024-09-11 14:40] VITALS: BP 145/96; O2SAT 100
[2024-09-11 15:10] VITALS: BP 163/100; O2SAT 99
[2024-09-11 15:31] VITALS: BP 122/67; O2SAT 98
[2024-09-11] MEDS: IMMUNE GLOBULIN 10% 10 GM in IV 1 EA IV ONE (15:39)
[2024-09-11 15:40] VITALS: BP 158/102; O2SAT 100
[2024-09-11] MEDS: diphenhydrAMINE 25MG PO PRIOR TO INFUSION PO ONE (15:40)
[2024-09-11] MEDS: ACETAMINOPHEN 650MG PO PRIOR TO INFUSION PO ONE (15:40)
[2024-09-11 17:25] VITALS: BP 133/93; O2SAT 100
== END 2024-09-11 17:30 ==
LOC: M INFU 14:00
PROVIDERS: ATTEND Nurse Practitioner Family
DX: G61.81 Chronic inflammatory demyelinating polyneuritis (principal)
CPT/HCPCS: 96365; 96366; 96367; J1459; J2919

== ENCOUNTER 2024-09-12 07:20 | Outpatient (CLI) | payer BC ==
[~2024-09-12] VITALS: Ht 185.4 cm; Wt 111.0 kg
[2024-09-12 07:20] VITALS: BP 129/86; O2SAT 97
[2024-09-12] MEDS: methylPREDNISolone 125MG 2ML VIAL IV ONE (07:33)
[2024-09-12] MEDS: IMMUNE GLOBULIN 10% 40 GM in IV 1 EA IV ONE (07:38)
[2024-09-12] MEDS: ACETAMINOPHEN 650MG PO PRIOR TO INFUSION PO ONE (07:39)
[2024-09-12] MEDS: diphenhydrAMINE 25MG PO PRIOR TO INFUSION PO ONE (07:39)
[2024-09-12 08:05] VITALS: BP 159/93; O2SAT 99
[2024-09-12 08:30] VITALS: BP 142/90; O2SAT 99
[2024-09-12 09:00] VITALS: BP 137/87; O2SAT 100
[2024-09-12] MEDS: IMMUNE GLOBULIN 10% 10 GM in IV 1 EA IV ONE (10:08)
[2024-09-12 10:30] VITALS: BP 150/100; O2SAT 100
== END 2024-09-12 11:30 ==
LOC: M INFU 07:20
PROVIDERS: ATTEND Nurse Practitioner Family
DX: G61.81 Chronic inflammatory demyelinating polyneuritis (principal)
CPT/HCPCS: 96365; 96366; 96367; J1459; J2919

== ENCOUNTER 2024-09-12 11:03 | Outpatient (CLI) | payer BC ==
[2024-09-12 12:35] LABS: BASO % 0.1 % (0.0-1.0); HEMATOCRIT 38.6 % (42.0-52.0); HEMOGLOBIN 13.4 g/dl (13.5-17.5); LYMPH # 0.8 10^3/uL (1.5-5.0); LYMPH % 5.3 % (24.0-44.0); MEAN CORPUSCULAR HEMOGLOBIN 31.8 pg (27.0-33.0); MEAN CORPUSCULAR HGB CONC 34.7 g/dl (32.0-36.5); MEAN CORPUSCULAR VOLUME 91.7 fl (80.0-96.0); MONO # 0.1 10^3/uL (0.0-0.8); MONO % 0.8 % (2.0-8.0); NEUTROPHILS # 14.8 10^3/uL (1.5-8.5); NEUTROPHILS % 93.2 % (36.0-66.0); PLATELET COUNT, AUTOMATED 267 10^3/uL (150-450); RED BLOOD COUNT 4.21 10^6/uL (4.30-6.10); WHITE BLOOD COUNT 15.8 10^3/uL (4.0-10.0)
[2024-09-12 13:08] LABS: IRON (FE) 102 UG/DL (65-175); PERCENT SATURATION 26.5 % (19.7-50.0); TOTAL IRON BINDING CAPACITY 385 UG/DL (250-425)
[2024-09-12 13:09] LABS: ALBUMIN 3.4 G/DL (3.2-5.2); ALKALINE PHOSPHATASE 67 U/L (40-129); ALT/SGPT 51 U/L (7.0-40); AST/SGOT 25 U/L (<34); BILIRUBIN,TOTAL 0.4 MG/DL (0.3-1.2); BLOOD UREA NITROGEN 14 MG/DL (9-23); CALCIUM LEVEL 9.1 MG/DL (8.5-10.1); CARBON DIOXIDE LEVEL 22 MMOL/L (20-31); CHLORIDE LEVEL 109 MMOL/L (98-107); CHOLESTEROL LEVEL 154 MG/DL (<200); CHOLESTEROL RISK RATIO 3.31 (<5); CREATININE FOR GFR 0.82 MG/DL (0.70-1.30); GLOMERULAR FILTRATION RATE > 60.0 (>56); GLUCOSE, FASTING 143 MG/DL (60-100); HDL CHOLESTEROL 46.4 MG/DL (>40); LDL CHOLESTEROL 95.6 MG/DL (<100); NON-HDL-C 107.6 MG/DL; POTASSIUM SERUM 4.6 MMOL/L (3.5-5.1); SODIUM LEVEL 136 MMOL/L (136-145); TOTAL PROTEIN 9.3 G/DL (5.7-8.2); TRIGLYCERIDES LEVEL 60 MG/DL (<150)
[2024-09-12 13:13] LABS: CPK CREATINE PHOSPHOKINASE 132 U/L (46-171)
[2024-09-15 15:23] LABS: ANTI-MITOCHONDRIAL ANTIBODY NEGATIVE (NEGATIVE)
== END 2024-09-12 11:30 ==
LOC: M INFU 11:03
PROVIDERS: ATTEND Family Medicine
DX: E78.2 Mixed hyperlipidemia (principal); D47.2 Monoclonal gammopathy; K76.0 Fatty (change of) liver, not elsewhere classified; G61.81 Chronic inflammatory demyelinating polyneuritis; R76.11 Nonspecific reaction to tuberculin skin test without active tuberculosis

== ENCOUNTER 2024-09-19 07:09 | Outpatient (CLI) | payer BC ==
[~2024-09-19] VITALS: Ht 185.4 cm; Wt 111.0 kg
[~2024-09-19 07:09] MED LIST changes: +ACETAMINOPHEN 650MG PO PRIOR TO INFUSION PO ONE; +diphenhydrAMINE 25MG PO PRIOR TO INFUSION PO ONE
[2024-09-19 07:23] VITALS: BP 143/88; O2SAT 98
[2024-09-19] MEDS: methylPREDNISolone 125MG 2ML VIAL IV ONE (07:24)
[2024-09-19] MEDS: IMMUNE GLOBULIN 10% 40 GM in IV 1 EA IV ONE (08:03)
[2024-09-19] MEDS: IMMUNE GLOBULIN 10% 10 GM in IV 1 EA IV ONE (08:04)
[2024-09-19 09:00] VITALS: BP 144/90; O2SAT 97
[2024-09-19 09:30] VITALS: BP 138/83; O2SAT 99
[2024-09-19 10:30] VITALS: BP 140/92; O2SAT 100
== END 2024-09-19 11:00 ==
LOC: M INFU 07:09
PROVIDERS: ATTEND Nurse Practitioner Family
DX: G61.81 Chronic inflammatory demyelinating polyneuritis (principal)
CPT/HCPCS: 96365; 96366; 96367; J1459; J2919

== ENCOUNTER 2024-09-26 07:05 | Outpatient (CLI) | payer BC ==
[~2024-09-26] VITALS: Ht 185.4 cm; Wt 95.9 kg
[2024-09-26 07:14] VITALS: BP 137/89; O2SAT 99
[2024-09-26] MEDS: methylPREDNISolone 125MG 2ML VIAL IV ONE (07:21)
[2024-09-26] MEDS: IMMUNE GLOBULIN 10% 40 GM in IV 1 EA IV ONE (07:35)
[2024-09-26] MEDS: IMMUNE GLOBULIN 10% 10 GM in IV 1 EA IV ONE (07:40)
[2024-09-26 08:07] VITALS: BP 130/79; O2SAT 99
[2024-09-26 08:31] VITALS: BP 126/85; O2SAT 97
[2024-09-26 10:36] VITALS: BP 141/84; O2SAT 98
== END 2024-09-26 10:40 ==
LOC: M INFU 07:05
PROVIDERS: ATTEND Nurse Practitioner Family
DX: G61.81 Chronic inflammatory demyelinating polyneuritis (principal)
CPT/HCPCS: 96365; 96366; 96367; J1459; J2919

== ENCOUNTER → 2024-10-03 | Outpatient (CLI) | payer BC | LOC: M RAD 06:58 | PROVIDERS: ATTEND Family Medicine | DX: K76.0 Fatty (change of) liver, not elsewhere classified (principal); E04.1 Nontoxic single thyroid nodule; R16.1 Splenomegaly, not elsewhere classified ==

== ENCOUNTER → 2024-10-03 | Outpatient (CLI) | payer BC ==
[~2024-10-03] VITALS: Ht 185.4 cm; Wt 113.0 kg
[~2024-10-03] MED LIST changes: +methylPREDNISolone 125MG 2ML VIAL IV ONE
[2024-10-03 07:24] VITALS: BP 140/83; O2SAT 100
[2024-10-03] MEDS: IMMUNE GLOBULIN 10% 10 GM in IV 1 EA IV ONE (07:40)
[2024-10-03] MEDS: IMMUNE GLOBULIN 10% 40 GM in IV 1 EA IV ONE (07:41)
[2024-10-03 08:45] VITALS: BP 132/80; O2SAT 100
[2024-10-03 09:15] VITALS: BP 149/94; O2SAT 100
[2024-10-03 10:35] VITALS: BP 135/88; O2SAT 100
== END ==
LOC: M INFU 07:09
PROVIDERS: ATTEND Nurse Practitioner Family
DX: G61.81 Chronic inflammatory demyelinating polyneuritis (principal)
CPT/HCPCS: 96365; 96366; J1459

== ENCOUNTER → 2024-10-09 | Outpatient (CLI) | payer BC ==
[~2024-10-09] VITALS: Ht 185.4 cm; Wt 113.0 kg
[~2024-10-09] MED LIST changes: -ACETAMINOPHEN 650MG PO PRIOR TO INFUSION PO ONE; -diphenhydrAMINE 25MG PO PRIOR TO INFUSION PO ONE; -methylPREDNISolone 125MG 2ML VIAL IV ONE
[2024-10-09 13:25] VITALS: BP 150/94; O2SAT 100
[2024-10-09] MEDS: methylPREDNISolone 125MG 2ML VIAL IV ONE (13:45)
[2024-10-09] MEDS: diphenhydrAMINE 25MG CAP PO ONE (13:52)
[2024-10-09] MEDS: ACETAMINOPHEN 650MG PO PRIOR TO INFUSION PO ONE (13:53)
[2024-10-09] MEDS: IMMUNE GLOBULIN 10% 40 GM in IV 1 EA IV ONE (13:56)
[2024-10-09] MEDS: IMMUNE GLOBULIN 10% 10 GM in IV 1 EA IV ONE (13:57)
[2024-10-09 14:15] VITALS: BP 146/92; O2SAT 100
[2024-10-09 14:45] VITALS: BP 152/95; O2SAT 100
[2024-10-09 15:15] VITALS: BP 149/90; O2SAT 100
[2024-10-09 16:50] VITALS: BP 154/94; O2SAT 100
== END ==
LOC: M INFU 13:12
PROVIDERS: ATTEND Nurse Practitioner Family
DX: G61.81 Chronic inflammatory demyelinating polyneuritis (principal)
CPT/HCPCS: 96365; 96366; 96375; J1459; J2919

== ENCOUNTER 2024-10-30 10:20 | Outpatient (CLI) | payer BC ==
[~2024-10-30] VITALS: Ht 185.4 cm; Wt 111.0 kg
[2024-10-30 10:20] VITALS: BP 143/85; O2SAT 100
[~2024-10-30 10:20] MED LIST changes: +NS (Normal Saline) 0.9% 1,000 ML IV SCH; -NS 1,000 ML IV SCH
[2024-10-30] MEDS: IMMUNE GLOBULIN 10% 40 GM in IV 1 EA IV ONE (10:27)
[2024-10-30 11:10] VITALS: BP 131/83; O2SAT 100
[2024-10-30 11:40] VITALS: BP 139/88; O2SAT 100
[2024-10-30 12:10] VITALS: BP 140/87; O2SAT 100
== END 2024-10-30 13:15 ==
LOC: M INFU 10:20
PROVIDERS: ATTEND Nurse Practitioner Family
DX: G61.81 Chronic inflammatory demyelinating polyneuritis (principal)
CPT/HCPCS: 96365; 96366; J1459

== ENCOUNTER 2024-11-07 07:10 | Outpatient (CLI) | payer BC ==
[2024-11-07 07:10] VITALS: BP 140/88; O2SAT 100
[~2024-11-07 07:10] MED LIST changes: -methylPREDNISolone 125MG 2ML VIAL IV PRN
[2024-11-07] MEDS: methylPREDNISolone 125MG 2ML VIAL IV PRN (07:22)
[2024-11-07] MEDS: IMMUNE GLOBULIN 10% 40 GM in IV 1 EA IV ONE (07:23)
[2024-11-07 08:00] VITALS: BP 143/90; O2SAT 98
[2024-11-07 08:30] VITALS: BP 133/84; O2SAT 98
[2024-11-07 09:00] VITALS: BP 129/82; O2SAT 98
[2024-11-07 10:08] VITALS: BP 163/94; O2SAT 98
== END 2024-11-07 10:10 ==
LOC: M INFU 07:10
PROVIDERS: ATTEND Nurse Practitioner Family
DX: G61.81 Chronic inflammatory demyelinating polyneuritis (principal)
CPT/HCPCS: 96365; 96366; 96375; J1459; J2919

== ENCOUNTER 2024-11-14 07:00 | Outpatient (CLI) | payer BC ==
[~2024-11-14] VITALS: Ht 185.4 cm; Wt 112.0 kg
[2024-11-14 07:00] VITALS: BP 128/85; O2SAT 100
[~2024-11-14 07:00] MED LIST changes: -ALBUTEROL SULFATE 2.5MG/0.5ML INH NEB SOLN INH PRN; -EPINEPHrine INJ 1 MG/ML 1ML AMP IM PRN; -diphenhydrAMINE 50MG/ML VIAL IV PRN
[2024-11-14] MEDS ORDERED: ALBUTEROL SULFATE 2.5MG/0.5ML INH NEB SOLN INH PRN (07:01)
[2024-11-14] MEDS ORDERED: diphenhydrAMINE 50MG/ML VIAL IV PRN (07:01)
[2024-11-14] MEDS ORDERED: EPINEPHrine INJ 1 MG/ML 1ML AMP IM PRN (07:01)
[2024-11-14] MEDS: methylPREDNISolone 125MG 2ML VIAL IV PRN (07:11)
[2024-11-14] MEDS: IMMUNE GLOBULIN 10% 40 GM in IV 1 EA IV ONE (07:34)
[2024-11-14 08:00] VITALS: BP 133/84; O2SAT 100
[2024-11-14 08:30] VITALS: BP 105/70; O2SAT 99
[2024-11-14 08:58] VITALS: BP 137/78; O2SAT 97
[2024-11-14 10:10] VITALS: BP 179/97; O2SAT 97
== END 2024-11-14 10:10 | disposition home or self-care (01) ==
LOC: M INFU 07:00
PROVIDERS: ATTEND Nurse Practitioner Family
DX: G61.81 Chronic inflammatory demyelinating polyneuritis (principal)
CPT/HCPCS: 96365; 96366; 96375; J1459; J2919

== ENCOUNTER 2024-11-20 14:13 | Outpatient (CLI) | payer BC ==
[~2024-11-20 14:13] MED LIST changes: +ALBUTEROL SULFATE 2.5MG/0.5ML INH NEB SOLN INH PRN; +EPINEPHrine INJ 1 MG/ML 1ML AMP IM PRN; +diphenhydrAMINE 50MG/ML VIAL IV PRN
[2024-11-20 14:25] VITALS: BP 131/83; O2SAT 100
[2024-11-20] MEDS: methylPREDNISolone 125MG 2ML VIAL IV PRN (14:34)
[2024-11-20] MEDS: IMMUNE GLOBULIN 10% 40 GM in IV 1 EA IV ONE (14:43)
[2024-11-20 15:15] VITALS: BP 139/87; O2SAT 100
[2024-11-20 15:45] VITALS: BP 149/91; O2SAT 100
[2024-11-20 17:25] VITALS: BP 136/88; O2SAT 100
== END 2024-11-20 17:25 | disposition home or self-care (01) ==
LOC: M INFU 14:13
PROVIDERS: ATTEND Nurse Practitioner
DX: G61.81 Chronic inflammatory demyelinating polyneuritis (principal)
CPT/HCPCS: 96365; 96366; 96375; J1459; J2919

== ENCOUNTER → 2024-11-27 | Outpatient (CLI) | payer BC ==
[~2024-11-27] VITALS: Ht 185.4 cm; Wt 111.0 kg
[~2024-11-27] MED LIST changes: +methylPREDNISolone 125MG 2ML VIAL IV PRN
[2024-11-27 14:20] VITALS: BP 137/92; O2SAT 100
[2024-11-27] MEDS: IMMUNE GLOBULIN 10% 40 GM in IV 1 EA IV ONE (14:33)
[2024-11-27 15:00] VITALS: BP 133/89; O2SAT 100
[2024-11-27 15:30] VITALS: BP 129/87; O2SAT 100
[2024-11-27 17:05] VITALS: BP 145/87; O2SAT 99
== END ==
LOC: M INFU 14:10
PROVIDERS: ATTEND Nurse Practitioner
DX: G61.81 Chronic inflammatory demyelinating polyneuritis (principal)
CPT/HCPCS: 96365; 96366; J1459

== ENCOUNTER 2024-12-05 07:10 | Outpatient (CLI) | payer BC ==
[2024-12-05 07:10] VITALS: BP 139/83; O2SAT 99
[2024-12-05] MEDS: IMMUNE GLOBULIN 10% 40 GM in IV 1 EA IV ONE (07:38)
== END 2024-12-05 10:35 | disposition home or self-care (01) ==
LOC: M INFU 07:10
PROVIDERS: ATTEND Nurse Practitioner
DX: G61.81 Chronic inflammatory demyelinating polyneuritis (principal)
CPT/HCPCS: 96365; 96366; J1459

== ENCOUNTER 2024-12-11 14:34 | Outpatient (CLI) | payer BC ==
[~2024-12-11] VITALS: Ht 182.9 cm; Wt 111.0 kg
[2024-12-11 14:45] VITALS: BP 140/96; O2SAT 100
[2024-12-11] MEDS: IMMUNE GLOBULIN 10% 40 GM in IV 1 EA IV ONE (14:53)
[2024-12-11 15:15] VITALS: BP 164/96; O2SAT 100
[2024-12-11 15:40] VITALS: BP 133/79; O2SAT 98
[2024-12-11 17:20] VITALS: BP 146/96; O2SAT 100
== END 2024-12-11 17:25 ==
LOC: M INFU 14:34
PROVIDERS: ATTEND Nurse Practitioner
DX: G61.81 Chronic inflammatory demyelinating polyneuritis (principal)
CPT/HCPCS: 96365; 96366; J1459

== ENCOUNTER 2024-12-19 12:00 | Outpatient (CLI) | payer BC ==
[2024-12-19 12:00] VITALS: BP 140/89; O2SAT 99
[2024-12-19] MEDS: IMMUNE GLOBULIN 10% 40 GM in IV 1 EA IV ONE (12:08)
[2024-12-19 12:30] VITALS: BP 139/86; O2SAT 99
[2024-12-19 13:00] VITALS: BP 140/88; O2SAT 100
[2024-12-19 14:40] VITALS: BP 146/98; O2SAT 100
== END 2024-12-19 14:45 ==
LOC: M INFU 12:00
PROVIDERS: ATTEND Nurse Practitioner
DX: G61.81 Chronic inflammatory demyelinating polyneuritis (principal)
CPT/HCPCS: 96365; 96366; J1459

== ENCOUNTER 2024-12-25 14:04 | Outpatient (CLI) | payer BC ==
[~2024-12-25] VITALS: Ht 182.9 cm; Wt 111.0 kg
[~2024-12-25 14:04] MED LIST changes: -NS (Normal Saline) 0.9% 1,000 ML IV SCH
[2024-12-25 14:10] VITALS: BP 152/96; O2SAT 100
[2024-12-25] MEDS: IMMUNE GLOBULIN 10% 40 GM in IV 1 EA IV ONE (14:38)
[2024-12-25 15:15] VITALS: BP 133/87; O2SAT 99
[2024-12-25 15:45] VITALS: BP 140/87; O2SAT 97
[2024-12-25 17:00] VITALS: BP 134/86; O2SAT 100
[2024-12-26] MEDS ORDERED: IMMUNE GLOBULIN 10% 40 GM in IV 1 EA IV ONE (07:00)
[2024-12-26] MEDS ORDERED: ALBUTEROL SULFATE 2.5MG/0.5ML INH NEB SOLN INH PRN (07:01)
[2024-12-26] MEDS ORDERED: diphenhydrAMINE 50MG/ML VIAL IV PRN (07:01)
[2024-12-26] MEDS ORDERED: EPINEPHrine INJ 1 MG/ML 1ML AMP IM PRN (07:01)
[2024-12-26] MEDS ORDERED: methylPREDNISolone 125MG 2ML VIAL IV PRN (07:01)
== END 2024-12-25 17:00 | disposition home or self-care (01) ==
LOC: M INFU 14:04
PROVIDERS: ATTEND Nurse Practitioner
DX: G61.81 Chronic inflammatory demyelinating polyneuritis (principal)
CPT/HCPCS: 96365; 96366; J1459

== ENCOUNTER 2025-01-02 07:23 | Outpatient (CLI) | payer BC ==
[~2025-01-02] VITALS: Ht 185.4 cm; Wt 112.0 kg
[~2025-01-02 07:23] MED LIST changes: +NS (Normal Saline) 0.9% 1,000 ML IV SCH
[2025-01-02 07:30] VITALS: BP 139/84; O2SAT 98
[2025-01-02] MEDS: IMMUNE GLOBULIN 10% 40 GM in IV 1 EA IV ONE (08:11)
[2025-01-02 09:00] VITALS: BP 155/91; O2SAT 100
[2025-01-02 09:30] VITALS: BP 138/87; O2SAT 100
[2025-01-02 10:40] VITALS: BP 160/90; O2SAT 100
== END 2025-01-02 10:40 ==
LOC: M INFU 07:23
PROVIDERS: ATTEND Nurse Practitioner
DX: G61.81 Chronic inflammatory demyelinating polyneuritis (principal)
CPT/HCPCS: 96365; 96366; J1459

== ENCOUNTER 2025-01-08 14:14 | Outpatient (CLI) | payer BC ==
[~2025-01-08] VITALS: Ht 182.9 cm; Wt 112.0 kg
[~2025-01-08 14:14] MED LIST changes: -NS (Normal Saline) 0.9% 1,000 ML IV SCH
[2025-01-08] MEDS: NS (Normal Saline) 0.9% 1,000 ML IV SCH (14:27)
[2025-01-08 14:32] VITALS: BP 142/87; O2SAT 99
[2025-01-08] MEDS: IMMUNE GLOBULIN 10% 40 GM in IV 1 EA IV ONE (14:45)
[2025-01-08 15:15] VITALS: BP 129/77; O2SAT 98
[2025-01-08 15:45] VITALS: BP 133/51; O2SAT 99
[2025-01-08 17:21] VITALS: BP 136/93; O2SAT 98
== END 2025-01-08 17:15 ==
LOC: M INFU 14:14
PROVIDERS: ATTEND Nurse Practitioner
DX: G61.81 Chronic inflammatory demyelinating polyneuritis (principal)
CPT/HCPCS: 96365; 96366; J1459

== ENCOUNTER 2025-01-15 12:54 | Outpatient (CLI) | payer BC ==
[~2025-01-15] VITALS: Ht 185.4 cm; Wt 95.9 kg
[~2025-01-15 12:54] MED LIST changes: +NS (Normal Saline) 0.9% 1,000 ML IV SCH
[2025-01-15 13:00] VITALS: BP 174/97; O2SAT 100
[2025-01-15] MEDS: IMMUNE GLOBULIN 10% 40 GM in IV 1 EA IV ONE (13:24)
[2025-01-15 13:50] VITALS: BP 157/97; O2SAT 100
[2025-01-15 14:20] VITALS: BP 150/89; O2SAT 100
[2025-01-15 14:50] VITALS: BP 151/81; O2SAT 97
[2025-01-15 15:50] VITALS: BP 144/96; O2SAT 96
== END 2025-01-15 16:00 ==
LOC: M INFU 12:54
PROVIDERS: ATTEND Nurse Practitioner
DX: G61.81 Chronic inflammatory demyelinating polyneuritis (principal)
CPT/HCPCS: 96365; 96366; J1459

== ENCOUNTER → 2025-01-23 | Outpatient (CLI) | payer BC ==
[~2025-01-23] MED LIST changes: -ALBUTEROL SULFATE 2.5MG/0.5ML INH NEB SOLN INH PRN; -EPINEPHrine INJ 1 MG/ML 1ML AMP IM PRN; +ISOVUE-370 76% 100ML VIAL As Ordered ONE; -NS (Normal Saline) 0.9% 1,000 ML IV SCH; -diphenhydrAMINE 50MG/ML VIAL IV PRN; -methylPREDNISolone 125MG 2ML VIAL IV PRN
[2025-01-23 15:37] LABS: BASO % 0.4 % (0.0-1.0); EOS # 0.1 10^3/uL (0.0-0.5); EOS % 1.3 % (0.0-3.0); HEMOGLOBIN 14.6 g/dl (13.5-17.5); LYMPH # 1.7 10^3/uL (1.5-5.0); MEAN CORPUSCULAR HEMOGLOBIN 31.3 pg (27.0-33.0); MEAN CORPUSCULAR VOLUME 92.3 fl (80.0-96.0); MONO # 0.5 10^3/uL (0.0-0.8); MONO % 9.6 % (2.0-8.0); NEUTROPHILS % 56.5 % (36.0-66.0); PLATELET COUNT, AUTOMATED 252 10^3/uL (150-450); RED BLOOD COUNT 4.66 10^6/uL (4.30-6.10); WHITE BLOOD COUNT 5.2 10^3/uL (4.0-10.0)
[2025-01-23 15:54] LABS: IRON (FE) 129 UG/DL (65-175)
[2025-01-23 15:55] LABS: PERCENT SATURATION 31.2 % (19.7-50.0); TOTAL IRON BINDING CAPACITY 413 UG/DL (250-425)
[2025-01-23 15:56] LABS: ALKALINE PHOSPHATASE 68 U/L (40-129); ALT/SGPT 64 U/L (7.0-40); AST/SGOT 35 U/L (<34); BILIRUBIN,TOTAL 0.5 MG/DL (0.3-1.2); BLOOD UREA NITROGEN 17 MG/DL (9-23); CALCIUM LEVEL 9.4 MG/DL (8.5-10.1); CARBON DIOXIDE LEVEL 25 MMOL/L (20-31); CHLORIDE LEVEL 106 MMOL/L (98-107); CHOLESTEROL LEVEL 124 MG/DL (<200); CPK CREATINE PHOSPHOKINASE 210 U/L (46-171); CREATININE FOR GFR 1.02 MG/DL (0.70-1.30); GLOMERULAR FILTRATION RATE > 60.0 (>56); GLUCOSE, FASTING 107 MG/DL (60-100); HDL CHOLESTEROL 41.2 MG/DL (>40); LDL CHOLESTEROL 60.4 MG/DL (<100); NON-HDL-C 82.8 MG/DL; POTASSIUM SERUM 4.6 MMOL/L (3.5-5.1); SODIUM LEVEL 143 MMOL/L (136-145); TOTAL PROTEIN 8.2 G/DL (5.7-8.2); TRIGLYCERIDES LEVEL 112 MG/DL (<150)
[2025-01-23 18:45] LABS: URIC ACID 7.2 MG/DL (3.7-9.2)
[2025-01-23 18:56] LABS: HEMOGLOBIN A1c 5.4 % (4.0-6.0)
[2025-01-25 06:43] LABS: PROTEIN, TOTAL SO 8.1 g/dL (6.1-8.1)
[2025-01-26 13:52] LABS: QuantiFERON-TB Gold Plus NEGATIVE (NEGATIVE)
[2025-01-26 14:57] LABS: ANTI-MITOCHONDRIAL ANTIBODY NEGATIVE (NEGATIVE)
== END ==
LOC: M RAD 13:22
PROVIDERS: ATTEND Family Medicine
DX: R91.1 Solitary pulmonary nodule (principal); D47.2 Monoclonal gammopathy; E78.2 Mixed hyperlipidemia; R73.01 Impaired fasting glucose; M10.9 Gout, unspecified; E53.8 Deficiency of other specified B group vitamins; K76.0 Fatty (change of) liver, not elsewhere classified; G61.81 Chronic inflammatory demyelinating polyneuritis; R76.11 Nonspecific reaction to tuberculin skin test without active tuberculosis
CPT/HCPCS: 36415; 71260; 80053; 80061; 82390; 82550; 82607; 83036; 83516; 83521; 83550; 84155; 84165; 84550; 85025; 86015; 86255; 86376; 86381; 86480; Q9967

== ENCOUNTER 2025-11-17 09:05 | Day surgery (SDC) | payer BC ==
[~2025-11-17] VITALS: Ht 185.4 cm; Wt 107.2 kg
[~2025-11-17 09:05] MED LIST changes: -ISOVUE-370 76% 100ML VIAL As Ordered ONE; +ROSU5TAB49 PO; +TELM1TAB37 PO
[2025-11-17] MEDS ORDERED: AMLO1TAB25 PO (09:37)
[2025-11-17] MEDS ORDERED: LIDOCAINE 2% 100 MG/5 ML SDV (FOR ANES.) As Ordered ONE (09:56)
[2025-11-17] MEDS ORDERED: GLYCOPYRROLATE INJ 0.2 MG/ML 2 ML VIAL As Ordered ONE (09:56)
[2025-11-17 11:42] VITALS: TEMP 98
[2025-11-17 11:54] VITALS: BP 118/61; O2SAT 99
== END 2025-11-17 12:00 | disposition home or self-care (01) ==
LOC: M OPP 09:05
PROVIDERS: ATTEND Internal Medicine Gastroenterology
DX: Z12.11 Encounter for screening for malignant neoplasm of colon (principal); K64.0 First degree hemorrhoids; Z80.0 Family history of malignant neoplasm of digestive organs; K22.70 Barrett's esophagus without dysplasia; R12 Heartburn; Z79.899 Other long term (current) drug therapy; Z87.891 Personal history of nicotine dependence
CPT/HCPCS: 43239; 45378; 88305; J1596